=== PATIENT | male | born 1960 | race Caucasian/White ===

== ENCOUNTER → 2019-06-23 | Outpatient (CLI) | payer OTHER | END | disposition home or self-care (01) | LOC: RAD 09:29 | DX: M54.12 Radiculopathy, cervical region (principal); M25.78 Osteophyte, vertebrae; M25.711 Osteophyte, right shoulder ==

== ENCOUNTER 2020-06-06 16:30 | Emergency (ER) | payer OTHER ==
[~2020-06-06] VITALS: Ht 180.3 cm; Wt 103.0 kg
== END 2020-06-06 18:36 | disposition home or self-care (01) ==
LOC: ED 16:30
DX: S86.911A Strain of unspecified muscle(s) and tendon(s) at lower leg level, right leg, initial encounter (principal); F17.200 Nicotine dependence, unspecified, uncomplicated; X50.1XXA Overexertion from prolonged static or awkward postures, initial encounter; Y93.89 Activity, other specified; Y92.89 Other specified places as the place of occurrence of the external cause; Y99.8 Other external cause status

== ENCOUNTER → 2023-02-12 | Outpatient (CLI) | payer OTHER | END | disposition home or self-care (01) | LOC: RAD 13:13 | PROVIDERS: ATTEND Nurse Practitioner Family | DX: K59.00 Constipation, unspecified (principal); Z77.018 Contact with and (suspected) exposure to other hazardous metals ==